=== PATIENT | female | born 1935 | race Caucasian/White ===

== ENCOUNTER 2017-11-01 15:44 | Emergency (ER) | payer MEDICARE, OTHER ==
[2017-11-01 15:59] VITALS: BP 144/99
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
[2017-11-01] MEDS ORDERED: LIDOCAINE MPF 1%-EPI 1:200000 30 ML VIAL SUBQ STA (16:48)
== END 2017-11-01 17:33 | disposition home or self-care (01) ==
LOC: ED 15:44
DX: S61.412A Laceration without foreign body of left hand, initial encounter (principal); I10 Essential (primary) hypertension; Z79.82 Long term (current) use of aspirin; W22.8XXA Striking against or struck by other objects, initial encounter; Y93.89 Activity, other specified; Y92.009 Unspecified place in unspecified non-institutional (private) residence as the place of occurrence of the external cause
CPT/HCPCS: 12002; 99282; 99283

== ENCOUNTER 2018-08-08 11:01 | Emergency (ER) | payer MEDICARE, OTHER ==
[2018-08-08 11:19] VITALS: BP 147/53
--- NOTE | 2018-08-08 11:53 | ED Physician Documentation ---
PD HPI LOWER EXT INJURY - Stated complaint Stated Complaint: WOUND ON L LEG - Chief complaint Chief Complaint: Ext Problem - History obtained from History obtained from: Patient - History of Present Illness PD HPI LOW EXT INJURY LOCATION: Left, Lower leg Type of injury: No: Fall, Twist, Blunt / blow Where injury occurred: Home Timing - onset: Yesterday (noted an area of redness yesterday that has grown into today. Is red, warm and tender. No draiange. No noted injury. Not in situation for bug bites (was not in garage, attice, shed, etc). No noted contact irritants.) Timing - duration: Days (2) Timing - details: Gradual onset, Still present Associated symptoms: No: Weakness, Numbness Similar symptoms before: Has not had sx before Recently seen: Not recently seen Review of Systems Constitutional: denies: Fever, Chills, Myalgias Skin: reports: Rash Musculoskeletal: denies: Back pain Neurologic: denies: Focal weakness, Numbness PD PAST MEDICAL HISTORY - Past Medical History Past Medical History: Yes Cardiovascular: Hypertension Respiratory: None Neuro: None Endocrine/Autoimmune: None GI: None SALES AND SERVICE TECHNICIAN: None : None HEENT: None Psych: None Musculoskeletal: None Derm: None - Past Surgical History Past Surgical History: Yes /SALES AND SERVICE TECHNICIAN: Other HEENT: Tonsil/Adenoidectomy - Present Medications Home Medications: Ambulatory Orders Medication Instructions Recorded Confirmed Aspirin 81 mg PO DAILY 11/01/17 11/01/17 Metoprolol Succinate 1 tab PO DAILY 11/01/17 11/01/17 Doxycycline Hyclate 100 mg PO BID #14 capsule 08/08/18 Mupirocin 1 applic TP TID #15 g 08/08/18 - Allergies Allergies/Adverse Reactions: Allergies Allergy/AdvReac Type Severity Reaction Status Date / Time No Known Drug Allergies Allergy Verified 11/01/17 15:59 - Social History Does the pt smoke?: No Smoking Status: Never smoker Does the pt drink ETOH?: No Does the pt have substance abuse?: No - Immunizations Immunizations are current?: Yes - POLST Patient has POLST: No PD ED PE NORMAL - Vitals Vital signs reviewed: Yes - General General: Alert and oriented X 3, No acute distress, Well developed/nourished - Back Back: No CVA TTP, No spinal TTP - Derm Derm: Normal color, Warm and dry, Other (left anterolateral lower leg with rounded 3-4 cm red patch with local induration but no skin breakdown nor drainage. Mild appearance of early superficial blistering, but not vesicles as yet. No lymphangitis. ) - Extremities Extremities: No edema, No calf tenderness / cord - Neuro Neuro: Alert and oriented X 3, No motor deficit, Normal speech Results - Vitals Vitals: Vital Signs - 24 hr 08/08/18 11:16 Temperature 36.1 C L Heart Rate 58 L Respiratory 14 Rate Blood Pressure 147/53 H O2 Saturation 98 Oxygen O2 Source Room air PD MEDICAL DECISION MAKING - ED course Complexity details: considered differential (localized red area with induration and almost appearance of superficial blistering. But is not really tender and is only single area, so does not look like shingle pattern. Consider local irritation, occult insect bite, vs cellulitis. ), d/w patient Departure - Departure Disposition: 01 Home, Self Care Clinical Impression: Skin infection Condition: Stable Record reviewed to determine appropriate education?: Yes Instructions: ED Infec Skin Cellulitis Follow-Up: Rebel Washington MD [Primary Care Provider] - Prescriptions: Doxycycline Hyclate 100 mg PO BID #14 capsule Mupirocin 1 applic TP TID #15 g Comments: Warm moist towels to the area periodically through the day or 2. Mupirocin topical antibiotic 3 times daily. Doxycycline oral antibiotic. This looks likely to be a localized infection. It may be local inflammation or even a venom effect from a bite. There are no particular treatment for those options and therefore the antibiotic and see if it gets better seems reasonable at this point. Discharge Date/Time: 08/08/18 12:23
[2018-08-08] MEDS ORDERED: MUPIROCIN 2% OINT 1 GM TOP STA (12:11)
[2018-08-08] MEDS ORDERED: DOXYCYCLINE 100 MG TABLET PO STA (12:11)
== END 2018-08-08 12:23 | disposition home or self-care (01) ==
LOC: ED 11:01
DX: L08.9 Local infection of the skin and subcutaneous tissue, unspecified (principal); I10 Essential (primary) hypertension; Z79.82 Long term (current) use of aspirin
CPT/HCPCS: 99283; A9270

== ENCOUNTER 2019-03-26 11:10 | Outpatient (CLI) | payer MEDICARE, OTHER | END 2019-03-26 11:11 | disposition critical access hospital (66) | LOC: EMS 11:10 | PROVIDERS: ATTEND Surgery | DX: M25.552 Pain in left hip (principal); R53.83 Other fatigue | CPT/HCPCS: A0425; A0429 ==

== ENCOUNTER 2019-03-26 12:10 | Emergency (ER) | payer MEDICARE, OTHER ==
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
[2019-03-26 12:57] LABS: BASOPHILS % (AUTO) 0.2 %; EOSINOPHILS % (AUTO) 0.2 %; HGB - HEMOGLOBIN 12.8 g/dL (12.0-16.0); LYMPHOCYTES # (AUTO) 0.6 10^3/uL (1.5-3.5); LYMPHOCYTES % (AUTO) 9.9 %; MEAN CORPUSCULAR HEMOGLOBIN 28.5 pg (27.0-31.0); MEAN CORPUSCULAR HGB CONC 31.2 g/dL (32.0-36.0); MEAN CORPUSCULAR VOLUME 91.3 fL (81.0-99.0); MEAN PLATELET VOLUME 9.6 fL (7.9-10.8); MONOCYTES # (AUTO) 0.6 10^3/uL (0.0-1.0); MONOCYTES % (AUTO) 10.8 %; NEUTROPHILS # (AUTO) 4.7 10^3/uL (1.5-6.6); NEUTROPHILS % (AUTO) 78.4 %; PLT - PLATELET COUNT 179 10^3/uL (130-450); RED BLOOD COUNT 4.49 10^6/uL (4.20-5.40); RED CELL DISTRIBUTION WIDTH 14.5 % (12.0-15.0)
[2019-03-26 13:12] LABS: ALBUMIN 3.8 g/dL (3.2-5.5); ALBUMIN/GLOBULIN RATIO 1.3 (1.0-2.2); BILIRUBIN,TOTAL 0.8 mg/dL (0.2-1.0); CALCIUM 8.7 mg/dL (8.5-10.3); CREATININE 0.7 mg/dL (0.4-1.0); TOTAL PROTEIN 6.8 g/dL (6.7-8.2)
[2019-03-26 13:28] LABS: GLUCOSE, URINE (UA) NEGATIVE (NEGATIVE); KETONES,URINE (UA) NEGATIVE (NEGATIVE); LEUKOCYTE ESTERASE, URINE NEGATIVE (NEGATIVE); NITRITE,URINE NEGATIVE (NEGATIVE); OCCULT BLOOD,URINE TRACE-INTA (NEGATIVE); PH,URINE 6.5 PH (5.0-7.5); PROTEIN,URINE NEGATIVE (NEGATIVE); UROBILINOGEN,URINE 1 (NORMAL) E.U./dL (NORMAL)
[2019-03-26 13:31] LABS: BILIRUBIN,URINE NEGATIVE (NEGATIVE); CLARITY,URINE CLEAR (CLEAR); ICTOTEST,URINE NEGATIVE
--- NOTE | 2019-03-26 13:34 | XRAY Report ---
Reason: right leg pain and bruising after fall Procedure Date: 03/26/2019 Accession Number: [id number] / [id number] Procedure: XR - Foot 3 View RT CPT Code: FULL RESULT: EXAM: RIGHT FOOT RADIOGRAPHY EXAM DATE: 03/26/2019 01:21 PM. CLINICAL HISTORY: Right leg pain and bruising after fall. COMPARISON: LEG LOWER RT 03/26/2019 12:56 PM. TECHNIQUE: 3 views. FINDINGS: Bones: No acute fracture identified. Joints: There is hallux valgus. No dislocation. Soft Tissues: Mild soft tissue edema. IMPRESSION: No acute osseus abnormality. RADIA
--- NOTE | 2019-03-26 13:41 | XRAY Report ---
Reason: right leg pain and bruising after fall Procedure Date: 03/26/2019 Accession Number: [id number] / [id number] Procedure: XR - Tib/Fib RT CPT Code: FULL RESULT: EXAM: RIGHT TIBIA/FIBULA RADIOGRAPHY EXAM DATE: 03/26/2019 01:20 PM. CLINICAL HISTORY: Right leg pain and bruising after fall. COMPARISON: FOOT 3 VIEW RT 03/26/2019 12:58 PM. TECHNIQUE: 2 views. FINDINGS: Bones: No acute fracture identified. Joints: The visualized knee and ankle joints are unremarkable. Soft Tissues: Mild soft tissue swelling. IMPRESSION: No acute osseus abnormality. RADIA
[2019-03-26] MEDS ORDERED: POTASSIUM CHLORIDE 20 MEQ TABLET PO STA (13:56)
[2019-03-26 14:05] VITALS: BP 129/81
== END 2019-03-26 14:19 | disposition home or self-care (01) ==
LOC: EDUNIT# → ED 12:10
DX: S80.11XA Contusion of right lower leg, initial encounter (principal); W17.89XA Other fall from one level to another, initial encounter; Y93.H2 Activity, gardening and landscaping; Y92.008 Other place in unspecified non-institutional (private) residence as the place of occurrence of the external cause; I10 Essential (primary) hypertension
CPT/HCPCS: 36415; 73590; 73630; 81003; 83690; 93005; 99283; 99284; A9270; 80053; 81001; 84443; 85025; 87086